=== PATIENT | female | born 1975 | race Caucasian/White ===

== ENCOUNTER 2016-06-26 20:42 | Emergency (ER) | payer BC ==
[~2016-06-26] VITALS: Ht 172.7 cm; Wt 63.2 kg
[~2016-06-26 20:42] MED LIST: FOLI400T41 PO
[2016-06-26 20:46] VITALS: BP 132/84; PULSE 78; TEMP 37.2; O2SAT 100; Ht 172.7 cm; Wt 63.2 kg
--- NOTE | 2016-06-26 21:53 | DIAGNOSTIC IMAGING REPORT ---
RIGHT ELBOW 3 VIEWS CLINICAL HISTORY: Fall with right arm pain. FINDINGS: 3 views of the right elbow are obtained. No prior studies are available for comparison at the time of dictation. The skeletal structures are well mineralized. No fracture is seen. The joint spaces of the elbow are well-maintained. There is no joint effusion. Mild dorsal soft tissue swelling is noted. IMPRESSION: Soft tissue swelling with no radiographic evidence of right elbow fracture. Electronically signed by: Martin Kelly M.D. 06/26/2016 9:51 PM Dictated Date/Time: 06/26/2016 9:51 PM
--- NOTE | 2016-06-26 21:54 | DIAGNOSTIC IMAGING REPORT ---
THORACIC SPINE 3 VIEWS CLINICAL HISTORY: Fall with thoracic back pain. FINDINGS: AP, lateral, and swimmer's views of the thoracic spine are obtained. No prior studies are available for comparison at the time of dictation. The skeletal structures are well mineralized. There is no radiographic evidence of fracture or malalignment. Vertebral body height and alignment are maintained throughout the thoracic spine. Small anterior osteophytes are seen throughout. The transverse processes and pedicles are grossly intact on the frontal view. The intervertebral disc spaces are preserved. The imaged lung parenchyma appears clear. IMPRESSION: There is no radiographic evidence of fracture or malalignment involving the thoracic spine. Electronically signed by: Martin Kelly M.D. 06/26/2016 9:53 PM Dictated Date/Time: 06/26/2016 9:52 PM
--- NOTE | 2016-06-26 22:03 | DIAGNOSTIC IMAGING REPORT ---
PA CHEST WITH RIGHT-SIDED RIB SERIES CLINICAL HISTORY: Fall with right posterior rib pain. FINDINGS: A PA chest radiograph with 4 additional views may right-sided rib series are obtained. No prior studies are available for comparison at the time of dictation. The cardiomediastinal silhouette is unremarkable. The lungs and pleural spaces are clear. No pneumothorax is seen. There is no radiographic evidence of acute/distracted right-sided rib fracture on the rib series. The remainder of the bony thorax is grossly intact. IMPRESSION: 1. The lungs are clear. 2. There is no radiographic evidence of right-sided rib fractures clinically queried. Electronically signed by: Martin Kelyl M.D. 06/26/2016 10:01 PM Dictated Date/Time: 06/26/2016 9:59 PM
--- NOTE | 2016-06-26 22:40 | EMERGENCY ROOM VISIT NOTE ---
ED Visit Note First contact with patient: 20:53 CHIEF COMPLAINT: Fall HISTORY OF PRESENT ILLNESS: This 40-year-old female patient presents to the emergency department ambulatory for evaluation after a fall. The patient states that she was walking in socks and slipped down 3 steps, striking her right elbow and the right side of her ribs. She reports mild pain in the right elbow. She has moderate pain in the right back and ribs. She states the pain is worse with deep breath or with moving. She rates her discomfort a 3/10 at rest. She has not taken any medication for the pain. She did apply ice to the areas of pain and states this did help. The patient denies hitting her head. She denies any other injuries. The patient denies any abdominal pain, nausea, or vomiting. She denies any numbness or weakness. REVIEW OF SYSTEMS: A 6 system review of systems was completed with positives and pertinent negatives listed in the HPI. ALLERGIES: No known drug allergies MEDICATIONS: No chronic medications PMH: No significant past medical history. SOCIAL HISTORY: The patient lives locally with family. PHYSICAL EXAM: VITALS: Vitals are noted on the nurse's note and reviewed by myself. Vital signs stable. GENERAL: This is a 40-year-old female, in no acute distress, nondiaphoretic, well-developed well-nourished. LUNGS: Clear to auscultation and breath sounds equal, no wheezes, rales, or rhonchi. HEART: Heart sounds are regular without murmurs, ectopy, gallop, or rub. CHEST: The right chest wall is tender to palpation over the posterior lower ribs but there is no fracture crepitus and no ecchymosis. There is no tachypnea or dyspnea. ABDOMEN: Positive bowel sounds x 4. Normal tympanic percussion. Soft, nontender, without masses or organomegaly. No guarding or rebound tenderness. MUSCULOSKELETAL: There is mild tenderness to palpation over the right olecranon process. Full range of motion of the right elbow. NEURO: Patient was alert and oriented to person place and time. RADIOGRAPHIC FINDINGS: PA CHEST WITH RIGHT-SIDED RIB SERIES FINDINGS: A PA chest radiograph with 4 additional views may right-sided rib series are obtained. No prior studies are available for comparison at the time of dictation. The cardiomediastinal silhouette is unremarkable. The lungs and pleural spaces are clear. No pneumothorax is seen. There is no radiographic evidence of acute/distracted right-sided rib fracture on the rib series. The remainder of the bony thorax is grossly intact. IMPRESSION: 1. The lungs are clear. 2. There is no radiographic evidence of right-sided rib fractures clinically queried. THORACIC SPINE 3 VIEWS CLINICAL HISTORY: Fall with thoracic back pain. FINDINGS: AP, lateral, and swimmer's views of the thoracic spine are obtained. No prior studies are available for comparison at the time of dictation. The skeletal structures are well mineralized. There is no radiographic evidence of fracture or malalignment. Vertebral body height and alignment are maintained throughout the thoracic spine. Small anterior osteophytes are seen throughout. The transverse processes and pedicles are grossly intact on the frontal view. The intervertebral disc spaces are preserved. The imaged lung parenchyma appears clear. IMPRESSION: There is no radiographic evidence of fracture or malalignment involving the thoracic spine. RIGHT ELBOW 3 VIEWS CLINICAL HISTORY: Fall with right arm pain. FINDINGS: 3 views of the right elbow are obtained. No prior studies are available for comparison at the time of dictation. The skeletal structures are well mineralized. No fracture is seen. The joint spaces of the elbow are well-maintained. There is no joint effusion. Mild dorsal soft tissue swelling is noted. IMPRESSION: Soft tissue swelling with no radiographic evidence of right elbow fracture. EMERGENCY DEPARTMENT COURSE: I examined the patient. X-rays of the chest with right rib detail, thoracic spine and right elbow were performed and read by radiology. No fractures were identified. Conservative measures were discussed with the patient. She declined analgesics. She verbalized understanding of my assessment and treatment plan and was discharged home in good condition. DIAGNOSIS: Fall, multiple contusions Current/Historical Medications No Active Prescriptions or Reported Meds Allergies Coded Allergies: No Known Allergies (Unverified , 05/03/14) Vital Signs Date Time Temp Pulse Resp B/P Pulse Ox O2 Delivery O2 Flow Rate FiO2 06/26/16 20:46 37.2 78 16 132/84 100 Room Air Departure Information Impression Primary Impression: Fall Additional Impression: Contusion of multiple sites Dispostion Home / Self-Care Condition GOOD Prescriptions No Active Prescriptions or Reported Meds Referrals Wilber Braxton D.O.Int.Med. (PCP) Patient Instructions My [facility] Additional Instructions For pain control, you can use the following [id number] medicines (if >12 yo): - Regular strength (325mg/tab) Tylenol (acetaminophen) 2 tabs every 4-6 hours as needed. Do not exceed 12 tablets in a 24 hour period. Avoid taking more than 4 grams (4000 mg) of Tylenol per day. This includes any other sources of acetaminophen you may take on a regular basis. - Regular strength (200 mg/tab) Advil (ibuprofen) 1-2 tabs every 4-6 hours as needed. Do not exceed a dose of 3200 mg per day. Ice the areas of pain frequently for the next 48 hours. Problem Qualifiers Primary Impression: Fall Encounter type: initial encounter Qualified Codes: W19.XXXA - Unspecified fall, initial encounter
== END 2016-06-26 22:44 | disposition home or self-care (01) ==
LOC: C.EDB 20:44 → C.EDD 22:44
DX: T14.8 Other injury of unspecified body region (principal); W10.9XXA Fall (on) (from) unspecified stairs and steps, initial encounter; Y93.01 Activity, walking, marching and hiking; Y99.8 Other external cause status